=== PATIENT | male | born 1990 | race Hispanic/Latino ===

== ENCOUNTER 2021-12-12 16:36 | Emergency (ER) | payer BC ==
[~2021-12-12] VITALS: Ht 165.1 cm; Wt 88.5 kg
[2021-12-12 17:15] LABS: INFLUENZA TYPE A NEGATIVE FOR TYPE A (NEG); INFLUENZA TYPE B NEGATIVE FOR TYPE B (NEG)
[2021-12-12] MEDS ORDERED: D-ME1POW16 PO (17:19)
[2021-12-12] MEDS ORDERED: NIRM1TAB PO (17:19)
[2021-12-12 17:30] VITALS: BP 142/82
[2021-12-12] MEDS ORDERED: ACETAMINOPHEN WITH CODEINE 1 TAB TAB PO ONE (17:30)
== END 2021-12-12 17:47 | disposition home or self-care (01) ==
LOC: EDH 16:36
DX: U07.1 COVID-19 (principal); Z88.0 Allergy status to penicillin
CPT/HCPCS: 87635; 87804 ×2; 99283; C9803